=== PATIENT | male | born 1975 | race African-American/Black ===

== ENCOUNTER 2024-10-19 22:05 | Inpatient (IN) | payer OTHER ==
[~2024-10-19] VITALS: Ht 175.3 cm; Wt 109.5 kg
[2024-10-19 22:21] LABS: PLATELET COUNT (AUTO) 208 K/uL (150-450); RED BLOOD CELL COUNT(AUTO) 4.85 MIL/uL (4.50-5.90); RED CELL DISTRIBUTION WIDTH 12.6 % (11.5-14.5); WHITE BLOOD COUNT (AUTO) 8.8 K/uL (4.5-11.0)
[2024-10-19 22:28] LABS: CALCIUM, TOTAL 9.1 mg/dL (8.8-10.5); CREATININE 1.45 mg/dL (0.60-1.30); GLOMERULAR FILTR. RATE CALC 43.0 mL/min (>60); GLUCOSE,RANDOM 117.0 mg/dL (70-110); SODIUM SERUM 148.0 mmol/L (136-145); UREA NITROGEN, BLOOD 17.0 mg/dL (7-18)
[2024-10-19] MEDS ORDERED: IOHEXOL 350 MG/ML 100 ML VIAL ONE (22:28)
[2024-10-19] MEDS ORDERED: SODIUM CHLORIDE 0.9% 100 ML ONE (22:28)
[2024-10-19] MEDS ORDERED: EMPA10TA3 PO (22:36)
[2024-10-19] MEDS ORDERED: ATOR40TA28 PO (22:36)
[2024-10-19] MEDS ORDERED: IBUP-1492 PO (22:36)
[2024-10-19] MEDS ORDERED: SUMA25TA15 PO (22:36)
[2024-10-19] MEDS ORDERED: PRAZ2 PO (22:36)
[2024-10-19] MEDS ORDERED: SERT-162 PO (22:36)
[2024-10-19] MEDS ORDERED: GABA-1181 PO (22:36)
[2024-10-19] MEDS ORDERED: QUET200T PO (22:36)
[2024-10-19 22:37] LABS: ASPARTATE AMINOTRANSFERASE 41.0 U/L (15-37); TOTAL PROTEIN, SERUM 6.5 g/dL (6.4-8.2); TROPONIN I-HIGH SENSITIVITY 9 ng/L (<76)
[2024-10-19 23:39] LABS: LACTIC ACID 0.7 mmol/L (0.4-2.0)
[2024-10-20] VITALS (11 sets, daily range): BP systolic 117–135; BP diastolic 76–96; PULSE 80–103; RESP 16–23; TEMP 97.9–98.8; O2SAT 93–98
[2024-10-20] MEDS: MAGNESIUM SULFATE 2 GM, MVI, ADULT NO.1 WITH VIT K 10 ML, THIAMINE 100 MG, FOLIC ACID 1... IV ONE (01:48)
[2024-10-20 02:05] LABS: TROPONIN I-HIGH SENSITIVITY 7 ng/L (<76)
[2024-10-20 03:41] LABS: APPEARANCE,URINE CLEAR (CLEAR); GLUCOSE, URINE (UA) 300-500 mg/dL (NEGATIVE); LEUKOCYTE ESTERASE ,URINE NEGATIVE (NEGATIVE); NITRATE,URINE NEGATIVE (NEGATIVE); OCCULT BLOOD,URINE NEGATIVE (NEGATIVE); PH,URINE DRUG SCREEN 5.5 (5.0-8.0)
[2024-10-20 03:46] LABS: SPECIFIC GRAVITIY, URINE 1.030 (1.003-1.030)
[2024-10-20 03:48] LABS: ALCOHOL, URINE DRUG SCREEN NEGATIVE (NEGATIVE); AMPHET/METH SCREEN,URINE NEGATIVE (NEGATIVE); BARBITURATE SCREEN, URINE NEGATIVE (NEGATIVE); CANNABINOID SCREEN,URINE NEGATIVE (NEGATIVE); COCAINE SCREEN,URINE NEGATIVE (NEGATIVE); METHADONE SCREEN, URINE NEGATIVE (NEGATIVE)
[2024-10-20 03:51] LABS: SQUAMOUS EPITHELIAL CELL,UR Few /LPF (None Seen)
[2024-10-20] MEDS: ASPIRIN 81 MG CHEWABLE TABLET PO ONE (04:15)
[2024-10-20] MEDS ORDERED: ACETAMINOPHEN 325 MG TABLET PO PRN (04:15)
[2024-10-20] MEDS ORDERED: ONDANSETRON HCL 4 MG/2 ML VIAL IVP PRN (04:15)
[2024-10-20 04:50] LABS: CHOL/HDL RATIO 5.9 (4.2-7.3); LDL CHOL (CALC.) 104.0 mg/dL (0-130)
[2024-10-20] MEDS: MELATONIN 3 MG TABLET PO ONE (04:59)
[2024-10-20 08:56] LABS: TROPONIN I-HIGH SENSITIVITY 10 ng/L (<76)
[2024-10-20 08:59] LABS: SODIUM SERUM 142.0 mmol/L (136-145)
[2024-10-20] MEDS: CLOPIDOGREL BISULFATE 75 MG TABLET PO SCH (09:00)
[2024-10-20] MEDS: DOCUSATE SODIUM 100 MG CAPSULE PO SCH (09:00)
[2024-10-20] MEDS: HEPARIN SODIUM,PORCINE 5,000 UNITS/ML VIAL SQ SCH (09:16)
[2024-10-20] MEDS: 1: MAGNESIUM SULFATE 2 GM, MVI, ADULT NO.1 WITH VIT K 10 ML, THIAMINE 100 MG, FOLIC ACID IV SCH (17:30)
[2024-10-20 20:21] LABS: GLUCOMETER DEV NAME(LOC) 5N.2C; GLUCOSE,POINT OF CARE 134 MG/DL (70-110)
[2024-10-20] MEDS: ATORVASTATIN CALCIUM 40 MG TABLET PO SCH (20:47)
[2024-10-20] MEDS: PRAZOSIN HCL 1 MG CAPSULE PO SCH (22:49)
[2024-10-21 03:57] VITALS: BP 125/75; PULSE 80; RESP 18; TEMP 97.6; O2SAT 100
[2024-10-21 06:29] LABS: PLATELET COUNT (AUTO) 175 K/uL (150-450); RED BLOOD CELL COUNT(AUTO) 4.67 MIL/uL (4.50-5.90); RED CELL DISTRIBUTION WIDTH 12.5 % (11.5-14.5); WHITE BLOOD COUNT (AUTO) 4.6 K/uL (4.5-11.0)
[2024-10-21 06:39] LABS: CALCIUM, TOTAL 8.5 mg/dL (8.8-10.5); CREATININE 1.11 mg/dL (0.60-1.30); GLOMERULAR FILTR. RATE CALC > 60 mL/min (>60); GLUCOSE,RANDOM 358 mg/dL (70-110); SODIUM SERUM 137 mmol/L (136-145); UREA NITROGEN, BLOOD 12 mg/dL (7-18)
[2024-10-21 07:51] VITALS: BP 138/98; PULSE 80; RESP 18; TEMP 97.7; O2SAT 100
[2024-10-21] MEDS: ASPIRIN 81 MG CHEWABLE TABLET PO SCH (08:57)
[2024-10-21 12:04] VITALS: BP 142/90; PULSE 85; RESP 19; TEMP 98.4; O2SAT 97
[2024-10-21 15:46] VITALS: BP 141/95; PULSE 90; RESP 17; TEMP 98.8; O2SAT 97
[2024-10-25] MEDS ORDERED: EMPA25TA3 PO (12:02)
[2024-10-25] MEDS ORDERED: AMLO-258 PO (12:02)
[2024-10-25] MEDS ORDERED: HYDR25TA84 PO (12:02)
[2024-10-25] MEDS ORDERED: ASPI-1450 PO (12:02)
[2024-10-25] MEDS ORDERED: CLOP75TA83 PO (12:02)
[2024-10-25] MEDS ORDERED: SERT-440 PO (12:02)
[2024-10-25] MEDS ORDERED: METF-1211 PO (12:02)
[2024-10-25] MEDS ORDERED: QUET300T19 PO (12:02)
[2024-10-26] MEDS ORDERED: FOLI-130 PO (12:02)
[2024-10-26] MEDS ORDERED: THIA100T80 PO (12:02)
== END 2024-10-21 17:20 | disposition left against medical advice (07) | DRG 47 ==
LOC: EMS 22:05 → EDBD 22:05 → EDH 10-20 04:42 → 5N 10-20 07:15
PROVIDERS: ADMIT Internal Medicine; ATTEND Internal Medicine
DX: G45.9 Transient cerebral ischemic attack, unspecified (principal); F10.931 Alcohol use, unspecified with withdrawal delirium; E51.2 Wernicke's encephalopathy; E11.65 Type 2 diabetes mellitus with hyperglycemia; E66.9 Obesity, unspecified; E78.00 Pure hypercholesterolemia, unspecified; E87.6 Hypokalemia; Z53.29 Procedure and treatment not carried out because of patient's decision for other reasons; Y90.9 Presence of alcohol in blood, level not specified; F32.A Depression, unspecified; F41.9 Anxiety disorder, unspecified; Z68.35 Body mass index [BMI] 35.0-35.9, adult
CPT/HCPCS: 70496; 70498; 70551; 71045; 80048; 80053; 80061; 80307; 81001; 82140; 82948; 82962; 83605; 83735; 84132; 84295; 84484; 85025; 92526; 92610; 93005; 95816; 97110; 97116; 97162; 99291; G0480; J1644; J3411; J3475; J3490; J7030; J7050; 36415-L1; 36415-TC; 70450; 70450-TC